=== PATIENT | female | born 1960 | race Caucasian/White ===

== ENCOUNTER → 2024-02-09 14:07 | Outpatient (REF) | payer BC, SELFPAY | LOC: RAD 14:07 | PROVIDERS: ATTENDING PHYSICIAN Internal Medicine | DX: M81.0 Age-related osteoporosis without current pathological fracture (principal) | CPT/HCPCS: 77080 ==

== ENCOUNTER → 2024-02-22 13:39 | Outpatient (REF) | payer BC, SELFPAY | LOC: RAD 13:39 | PROVIDERS: ATTENDING PHYSICIAN Internal Medicine | DX: Z01.818 Encounter for other preprocedural examination (principal) | CPT/HCPCS: 71046 ==

== ENCOUNTER → 2025-01-03 14:29 | Outpatient (REF) | payer OTHER, SELFPAY | LOC: RCS 14:29 | PROVIDERS: ATTENDING PHYSICIAN Internal Medicine | DX: I49.1 Atrial premature depolarization (principal); R94.31 Abnormal electrocardiogram [ECG] [EKG]; R06.9 Unspecified abnormalities of breathing | CPT/HCPCS: 93017 ==